=== PATIENT | male | born 1995 | race Caucasian/White ===

== ENCOUNTER 2016-11-06 23:43 | Emergency (ER) | payer SELFPAY ==
[2016-11-07 00:16] VITALS: BP 137/86; PULSE 83; RESP 20; TEMP 97.4; O2SAT 99
[2016-11-07] MEDS ORDERED: Bacitracin 500 Units/gm Oint Foilpak UD ONE (01:27)
--- NOTE | 2016-11-07 01:28 | C.PDOC ---
History Of Present Illness 21 year old male who presents to the ER with a complaint of an injury to his right 5th finger after he was working with a drill and it slipped. Denies weakness or numbness. Time Seen by Provider: 11/07/16 00:17 Chief Complaint (Nursing): Abnormal Skin Integrity History Per: Patient History/Exam Limitations: no limitations Onset/Duration Of Symptoms: Hrs Current Symptoms Are (Timing): Still Present Location Of Injury: Right: Hand (5th digit) Quality Of Symptoms: Painful Recent travel outside of the [place]: No Past Medical History Reviewed: Historical Data, Nursing Documentation, Vital Signs Vital Signs: Last Vital Signs Temp 97.4 F L 11/07/16 00:13 Pulse 83 11/07/16 00:13 Resp 20 11/07/16 00:13 BP 137/86 11/07/16 00:13 Pulse Ox 99 11/07/16 02:32 - Medical History PMH: No Chronic Diseases Surgical History: Cholecystectomy Family History: States: Unknown Family Hx - Social History Hx Tobacco Use: No Hx Alcohol Use: No Hx Substance Use: No - Immunization History Hx Tetanus Toxoid Vaccination: Yes Hx Influenza Vaccination: Yes Hx Pneumococcal Vaccination: Yes Review Of Systems Musculoskeletal: Positive for: Hand Pain Neurological: Negative for: Weakness, Numbness Physical Exam - Physical Exam Appears: Non-toxic Skin: Normal Color, Warm, Dry Head: Atraumatic, Normacephalic Eye(s): bilateral: Normal Inspection, PERRL Oral Mucosa: Moist Extremity: Normal ROM (of right 5th digit w/ pain), Tenderness (5th digit of right hand), Capillary Refill (< 2 sec), Swelling (5th digit of right hand), Other (stellate abrasions to dorsal aspect of right fifth finger , no apparent tendon injury) Pulses: Left Radial: Normal, Right Radial: Normal Neurological/Psych: Oriented x3, Normal Speech, Normal Cognition ED Course And Treatment O2 Sat by Pulse Oximetry: 99 (Room air) Pulse Ox Interpretation: Normal - Other Rad Right hand x-ray X-Ray: Interpreted by Me, Viewed By Me Interpretation: No acute fractures or dislocations. Progress Note: Motrin administered. Right hand x-ray ordered. Patient is resting comfortably, and is in no acute distress.Bacitracib applied ti right finger wound, dressed and finger splint for support. Patient was instructed to follow up with PMD in 1-2 days for further evaluation. Disposition Counseled Patient/Family Regarding: Diagnosis, Need For Followup, Rx Given - Disposition Disposition: HOME/ ROUTINE Disposition Time: :26 Condition: STABLE Additional Instructions: Please keep wound dry and clean Apply bacitracin Follow up with pMD or in clinic return to er if worse Prescriptions: Ibuprofen [Motrin] 600 mg PO Q6H #30 tab Instructions: Contusion in Adults (ED), Abrasion (ED) - Clinical Impression Clinical Impression: Finger injury - Scribe Statement The provider has reviewed the documentation as recorded by the Scribe Cameron Gupta All medical record entries made by the Felixibe were at my direction and personally dictated by me. I have reviewed the chart and agree that the record accurately reflects my personal performance of the history, physical exam, medical decision making, and the department course for this patient. I have also personally directed, reviewed, and agree with the discharge instructions and disposition.
--- NOTE | 2016-11-07 08:23 | RAD ---
PROCEDURE: Right small finger radiographs. HISTORY: R/O FX COMPARISON: None. TECHNIQUE: AP radiograph of the right hand, as well as spot oblique and lateral images of small finger were obtained. FINDINGS: RIGHT SMALL FINGER: Ulnar-sided soft tissue laceration mid phalangeal level. No radiopaque foreign body. No bony interruption or fracture JOINTS: Normal. SOFT TISSUES: Laceration OTHER FINDINGS: None. IMPRESSION: No fracture or foreign body. Soft tissue laceration
== END 2016-11-07 01:35 | disposition home or self-care (01) ==
LOC: C.ER 23:43
DX: S60.416A Abrasion of right little finger, initial encounter (principal); W22.8XXA Striking against or struck by other objects, initial encounter; Y93.89 Activity, other specified; Y92.9 Unspecified place or not applicable